=== PATIENT | female | born 1970 | race Caucasian/White ===

== ENCOUNTER 2021-02-17 12:54 | Emergency (ER) | payer OTHER ==
[2021-02-17] MEDS ORDERED: HYDROCODON-ACE1 EAC2 PO ×2 (15:52→17:30)
== END 2021-02-17 16:49 | disposition home or self-care (01) ==
LOC: FER 12:54
DX: S93.402A Sprain of unspecified ligament of left ankle, initial encounter (principal); F17.210 Nicotine dependence, cigarettes, uncomplicated; X50.1XXA Overexertion from prolonged static or awkward postures, initial encounter; Y92.009 Unspecified place in unspecified non-institutional (private) residence as the place of occurrence of the external cause
CPT/HCPCS: 73610